=== PATIENT | male | born 2000 | race Caucasian/White ===

== ENCOUNTER 2022-10-26 16:04 | Emergency (ER) | payer MEDICAID ==
[~2022-10-26] VITALS: Ht 167.6 cm; Wt 96.8 kg
[2022-10-26 16:17] VITALS: BP 136/87
--- NOTE | 2022-10-26 16:38 | NUR ---
DENIES EAR PAIN CURRENTLY
[2022-10-26] MEDS ORDERED: NEOM10DR45 LEFT EAR (16:52)
== END 2022-10-26 17:12 | disposition home or self-care (01) ==
LOC: ER 16:07
DX: H60.8X2 Other otitis externa, left ear (principal); H60.332 Swimmer's ear, left ear
CPT/HCPCS: 99283